=== PATIENT | female | born 1995 | race Caucasian/White ===

== ENCOUNTER 2016-05-08 17:17 | Emergency (ER) | payer OTHER ==
[2016-05-08 18:04] VITALS: BP 122/66
--- NOTE | 2016-05-08 19:17 | UC ---
FLU HPI - HPI Summary HPI Summary: 20 year old female with 3 days of body aches, headaches, sinus pressure, sore throat and cough. Feeling worse each day. Took ibuprofen 3 hours ago without relief. She believes she has bronchitis and would like a zpack - History of Current Complaint Chief Complaint: UCRespiratory Stated Complaint: COUGH,CONGESTION Time Seen by Provider: 05/08/16 18:38 Hx Obtained From: Patient Hx Last Menstrual Period: 05/07/16 ?: No Onset/Duration: Gradual Onset, Lasting Days - 3, Still Present Severity Currently: Severe Severity Initially: Moderate Associated Signs & Symptoms: Positive: Fever, Myalgia, Cough, Sore Throat, Nasal Congestion, Headache. Negative: T Max, Vomiting, Diarrhea Related Hx: Possible Flu/Infectious Exposure - Risk Factors Influenza Risk Factors: Negative - Allergy/Home Medications Allergies/Adverse Reactions: Allergies Allergy/AdvReac Type Severity Reaction Status Date / Time No Known Allergies Allergy Verified 05/08/16 18:04 Home Medications: Home Medications GuaiFENesin DM* [Robitussin DM*] 1 dose PO Q24H PRN 05/08/16 [History Confirmed 05/08/16] Ibuprofen TAB* [Advil TAB*] 400 mg PO ONCE PRN 05/08/16 [History Confirmed 05/08] PMH/Surg Hx/FS Hx/Imm Hx Previously Healthy: Yes Endocrine History Of: Denies: Diabetes Cardiovascular History Of: Denies: Cardiac Disorders Respiratory History Of: Reports: Bronchitis, Pneumonia Denies: Asthma - Surgical History Surgical History: None - Family History Known Family History: Negative: Cardiac Disease, Hypertension, Diabetes, Respiratory Disease - Social History Occupation: Student Lives: With Family Alcohol Use: Weekly Alcohol Amount: 2 times a week; [address] per week Substance Use Type: None Smoking Status (MU): Never Smoked Tobacco - Immunization History Most Recent Influenza Vaccination: Not the 2016/2016 Season Review of Systems Constitutional: Fever, Fatigue Skin: Negative Eyes: Negative ENT: Sore Throat, Nasal Discharge Respiratory: Cough Cardiovascular: Negative Gastrointestinal: Negative Genitourinary: Negative Motor: Negative Neurovascular: Negative Musculoskeletal: Myalgia Neurological: Headache Psychological: Negative All Other Systems Reviewed And Are Negative: Yes Physical Exam Triage Information Reviewed: Yes Appearance: No Pain Distress, Well-Nourished, Ill-Appearing - mildly Vital Signs: Initial Vital Signs Temp 99.2 F 05/08/16 17:55 Pulse 62 05/08/16 17:55 Resp 20 05/08/16 17:55 BP 122/66 05/08/16 17:55 Pulse Ox 100 05/08/16 17:55 Vital Signs Reviewed: Yes Eyes: Positive: Conjunctiva Clear. Negative: Discharge ENT: Positive: Pharynx normal, Nasal congestion, Nasal drainage - clear. Negative: Tonsillar swelling Neck: Positive: Supple, Nontender, Enlarged Nodes @ - Bilateral AC Respiratory: Positive: Lungs clear, Normal breath sounds Cardiovascular: Positive: RRR, No Murmur Musculoskeletal: Positive: Strength Intact, ROM Intact Neurological: Positive: Alert, Muscle Tone Normal Psychological: Positive: Age Appropriate Behavior - pleasant and cooperative Skin: Negative: rashes, breakdown Flu Course/Dx - Course Course Of Treatment: Rapid Influenza - negative. Tylenol. Education and much discussion about taking and antibiotic for vial illness - Differential Dx/Diagnosis Differential Diagnosis/HQI/PQRI: Influenza, Upper Respiratory Infection Provider Diagnoses: Flu like illness. URI Discharge - Discharge Plan Condition: Stable Disposition: HOME Prescriptions: Azithromycin TAB* [Zithromax TAB (Z-LEXY) 250 mg #6 tabs] 2 tab PO .TODAY, THEN 1 DAILY #6 tab Patient Education Materials: Influenza (ED), Acute Bronchitis (ED)
[2016-05-08] MEDS ORDERED: Acetaminophen TAB* 325 MG PO ONE (19:27)
== END 2016-05-08 19:47 | disposition home or self-care (01) ==
LOC: UCCORT 17:17
DX: J11.1 Influenza due to unidentified influenza virus with other respiratory manifestations (principal); J06.9 Acute upper respiratory infection, unspecified
CPT/HCPCS: 87502; 99212; A9270-GY; G0463